=== PATIENT | female | born 1995 | race African-American/Black ===

== ENCOUNTER 2021-06-12 15:10 | Inpatient (IN) ==
[2021-06-12] MEDS ORDERED: LACTATED RINGERS 1,000 ML IV ONE (15:56)
[2021-06-12] MEDS ORDERED: ONDANSETRON 4 MG/2 ML VIAL IV PRN (15:56)
[2021-06-12] MEDS ORDERED: LACTATED RINGERS 1,000 ML IV SCH (16:00)
[2021-06-12 16:17] LABS: Basophils % 0.1 % (0.0-0.8); Eosinophils # 0.1 10*3/uL (0.0-0.87); Eosinophils % 0.6 % (0.00-10.9); Hematocrit 34.7 VOL% (35.7-47.0); Hemoglobin 10.9 GM/DL (12.0-16.0); Immature Granulocytes % 0.4 %; Immature Granulocytes Absolute 0.03 #; Lymphocytes # 1.1 10*3/uL (1.4-4.0); Lymphocytes % 13.4 % (21.3-54.2); Mean Corpuscular HGB Conc 31.4 GM/DL (32-36); Mean Corpuscular Volume 95.3 FL (87-102); Mean Platelet Volume 11.4 FL (9.6-12.0); Monocytes % 7.2 % (1.7-12.7); Neutrophils % 78.3 % (38.7-73.9); Platelet Count 202 T/CUMM (130-400); Red Blood Count 3.64 MC/CUMM (3.8-5.5); Red Cell Distribution Width 13.4 % (9.3-17.3)
[2021-06-12] MEDS ORDERED: INFLUENZA VIRUS VACCINE 0.5 ML SYRINGE IM ONE (16:37)
[2021-06-13] MEDS ORDERED: CITRIC ACID/SODIUM CITRATE 30 ML UDCUP PO ONE (07:30)
[2021-06-13] MEDS ORDERED: OXYTOCIN/LR 30 UNIT/1,000 ML BAG IV ONE (07:30)
[2021-06-13] MEDS ORDERED: OXYTOCIN 10 UNIT/ML VIAL IM ONE (07:30)
[2021-06-13] MEDS ORDERED: FAMOTIDINE 20 MG/2 ML VIAL IV ONE ×2 (08:14→08:20)
[2021-06-13] MEDS ORDERED: ceFAZolin 3,000 MG in SYRINGE 1 EACH IV ONE (08:30)
[2021-06-13] MEDS ORDERED: ONDANSETRON 4 MG/2 ML VIAL ONE (08:43)
[2021-06-13] MEDS ORDERED: KETOROLAC 30 MG/1 ML VIAL ONE (08:43)
[2021-06-13] MEDS ORDERED: DEXAMETHASONE 4 MG/1 ML VIAL ONE (08:43)
[2021-06-13] MEDS ORDERED: BUPIVACAINE SPINAL 0.75% 2 ML AMP SPINAL ONE (08:43)
[2021-06-13 10:17] LABS: Cord Venous Blood HCO3 15.7 MMOL/L; Cord Venous Blood PCO2 67.8 MMHG; Cord Venous Blood PO2 19.8
[2021-06-13 10:19] LABS: Cord Arterial Blood HCO3 14.8 MMOL/L
[2021-06-13 10:23] LABS: Bilirubin,Urine Negative (Negative); Blood, Urine Negative (Negative); Glucose,Urine (UA) Negative (Negative); Ketones,Urine Negative (Negative); Mucus,Urine Occasional /LPF (Occasional); Nitrite,Urine Negative (Negative); Protein,Urine Negative; RBC,Urine <1 /HPF (0-4); Squamous Epithelial Cell,Urine Occasional /HPF (0-10); Urine Appearance CLEAR (Clear); Urine Color Yellow (Yellow); Urine Specific Gravity 1.026 (1.001-1.035); Urine Urobilinogen < 2.0 EU/DL (0.2-1.0)
[2021-06-13] MEDS ORDERED: diphenhydrAMINE 50 MG/1 ML VIAL IV PRN (10:27)
[2021-06-13] MEDS ORDERED: hydrOXYzine HCL 25 MG/1 ML VIAL IM PRN (10:27)
[2021-06-13] MEDS ORDERED: HYDROmorphone 2 MG/1 ML VIAL IV PRN (10:27)
[2021-06-13] MEDS ORDERED: ACETAMINOPHEN 500 MG TABLET PO SCH (10:30)
[2021-06-13] MEDS ORDERED: RHO(D) IMMUNE GLOBULIN 300 MCG SYRINGE IM ONE (10:32)
[2021-06-13] MEDS ORDERED: OXYTOCIN/LR 20 UNIT/1,000 ML BAG IV ONE (10:32)
[2021-06-13] MEDS ORDERED: ACETAMINOPHEN 325 MG TABLET PO PRN (10:32)
[2021-06-13] MEDS ORDERED: ONDANSETRON 4 MG/2 ML VIAL IV PRN (10:32)
[2021-06-13] MEDS ORDERED: SODIUM CHLORIDE 0.65% NASAL SPRAY 45 ML BOTTLE BOTH NARES PRN (10:41)
[2021-06-13] MEDS ORDERED: LACTATED RINGERS 1,000 ML IV SCH (11:00)
[2021-06-13] MEDS: SIMETHICONE CHEW 80 MG TABLET PO PRN (14:27)
[2021-06-13] MEDS ORDERED: KETOROLAC 30 MG/1 ML VIAL IV SCH (16:30)
[2021-06-13 17:50] LABS: Basophils % 0.1 % (0.0-0.8); Hematocrit 28.7 VOL% (35.7-47.0); Immature Granulocytes % 0.5 %; Immature Granulocytes Absolute 0.05 #; Lymphocytes # 0.5 10*3/uL (1.4-4.0); Lymphocytes % 5.6 % (21.3-54.2); Mean Corpuscular HGB Conc 31.4 GM/DL (32-36); Mean Platelet Volume 11.8 FL (9.6-12.0); Monocytes % 2.7 % (1.7-12.7); Neutrophils % 91.1 % (38.7-73.9); Platelet Count 169 T/CUMM (130-400); Red Blood Count 2.96 MC/CUMM (3.8-5.5); Red Cell Distribution Width 13.2 % (9.3-17.3); White Blood Count 9.4 T/CUMM (4-12)
[2021-06-13 19:28] LABS: Lymphocytes 2 % (20-55); Segmented Neutrophils 96 % (50-85); Total Cells Counted 100
[2021-06-13 19:29] LABS: Microcytosis Slight; Platelet Estimate Adequate
[2021-06-13] MEDS: IBUPROFEN 800 MG TABLET PO PRN (22:40)
[2021-06-13] MEDS: DOCUSATE SODIUM 100 MG CAPSULE PO SCH (22:40)
[2021-06-13] MEDS: FLUCONAZOLE 150 MG TABLET PO SCH (23:29)
[2021-06-14] MEDS: SIMETHICONE CHEW 80 MG TABLET PO PRN ×3 (04:38→20:10)
[2021-06-14] MEDS: IBUPROFEN 800 MG TABLET PO PRN ×3 (06:27→21:26)
[2021-06-14 06:35] LABS: Basophils % 0.1 % (0.0-0.8); Eosinophils % 0.1 % (0.00-10.9); Hemoglobin 9.6 GM/DL (12.0-16.0); Immature Granulocytes % 0.5 %; Immature Granulocytes Absolute 0.04 #; Lymphocytes # 1.5 10*3/uL (1.4-4.0); Lymphocytes % 16.9 % (21.3-54.2); Mean Corpuscular Volume 95.2 FL (87-102); Mean Platelet Volume 11.4 FL (9.6-12.0); Monocytes % 9.3 % (1.7-12.7); Neutrophils % 73.1 % (38.7-73.9); Platelet Count 182 T/CUMM (130-400); Red Blood Count 3.15 MC/CUMM (3.8-5.5); Red Cell Distribution Width 13.2 % (9.3-17.3); White Blood Count 8.8 T/CUMM (4-12)
[2021-06-14] MEDS: METOCLOPRAMIDE 10 MG TABLET PO SCH ×2 (08:53→15:45)
[2021-06-14] MEDS: MULTIVITAMIN (PRENATAL) TABLET PO SCH (08:53)
[2021-06-14] MEDS: MAGNESIUM HYDROXIDE SUSP 30 ML UDCUP PO PRN ×2 (08:53→20:10)
[2021-06-14] MEDS: DOCUSATE SODIUM 100 MG CAPSULE PO SCH ×2 (08:53→20:10)
[2021-06-15] MEDS: IBUPROFEN 800 MG TABLET PO PRN ×2 (02:11→08:46)
[2021-06-15] MEDS ORDERED: INFLUENZA VIRUS VACCINE 0.5 ML SYRINGE IM ONE (08:27)
[2021-06-15] MEDS ORDERED: DIPH/TET/ACEL PERT BOOSTER VACCINE 0.5 ML VIAL IM ONE (08:27)
[2021-06-15] MEDS: MULTIVITAMIN (PRENATAL) TABLET PO SCH (08:46)
[2021-06-15] MEDS: METOCLOPRAMIDE 10 MG TABLET PO SCH ×2 (08:46)
[2021-06-15] MEDS: SIMETHICONE CHEW 80 MG TABLET PO PRN (08:46)
[2021-06-15] MEDS: MAGNESIUM HYDROXIDE SUSP 30 ML UDCUP PO PRN (08:47)
[2021-06-15] MEDS: DOCUSATE SODIUM 100 MG CAPSULE PO SCH (08:47)
[2021-06-15] MEDS: FLUCONAZOLE 150 MG TABLET PO SCH (08:47)
[2021-06-15 09:13] VITALS: BP 124/74
== END 2021-06-15 13:20 | disposition home or self-care (01) | DRG 788 ==
LOC: N.LDOUT 15:10 → N.LD 15:12 → N.OB 06-13 15:04
PROVIDERS: ADMIT Obstetrics & Gynecology; ATTEND Obstetrics & Gynecology
PROC: LDCSECT (ICD-10-PCS; 2021-06-13 09:30)